=== PATIENT | female | born 1940 | race Caucasian/White ===

== ENCOUNTER 2020-12-25 14:25 | Outpatient (REF) | payer MEDICARE, SELFPAY ==
[2020-12-25 18:18] LABS: Alanine Aminotransferase 21 U/L (0-31); Albumin Level 4.4 g/dL (3.5-5.0); Alkaline Phosphatase 55 U/L (39-117); Anion Gap 16 (12-20); Aspartate Amino Transferase 28 U/L (5-31); Bilirubin Total 1.3 mg/dL (0.0-1.0); Blood Urea Nitrogen 46 mg/dL (9-16); Calcium 9.3 mg/dL (8.4-10.2); Carbon Dioxide 25 mmol/L (22-29); Chloride 102 mmol/L (96-108); Estimated Glomerular Filt Rate 39; Glucose Random 95 mg/dL (60-115); Potassium 3.7 mmol/L (3.3-5.1); Sodium 139 mmol/L (135-145)
[2020-12-26 07:46] LABS: Estimated Average Glucose 131 mg/dL; Hemoglobin A1c % 6.2 %
== END 2020-12-25 14:26 | disposition home or self-care (01) ==
LOC: HO.MANLDS 14:25
PROVIDERS: PCP Internal Medicine; Visit Provider Internal Medicine
DX: R73.01 Impaired fasting glucose (principal)
CPT/HCPCS: 36415; 80053; 83036

== ENCOUNTER 2021-10-10 14:11 | Outpatient (REF) | payer MEDICARE, SELFPAY ==
[2021-10-10 19:40] LABS: Alanine Aminotransferase 16 U/L (0-31); Albumin Level 4.1 g/dL (3.5-5.0); Alkaline Phosphatase 74 U/L (39-117); Anion Gap 13 (12-20); Aspartate Amino Transferase 21 U/L (5-31); Bilirubin Total 0.9 mg/dL (0.0-1.0); Blood Urea Nitrogen 25 mg/dL (9-16); Carbon Dioxide 29 mmol/L (22-29); Chloride 103 mmol/L (96-108); Estimated Glomerular Filt Rate 41; Glucose Random 116 mg/dL (60-115); Potassium 3.7 mmol/L (3.3-5.1); Sodium 141 mmol/L (135-145)
[2021-10-11 07:32] LABS: Estimated Average Glucose 140 mg/dL; Hemoglobin A1c % 6.5 %
== END 2021-10-10 14:12 | disposition home or self-care (01) ==
LOC: HO.MANLDS 14:11
PROVIDERS: PCP Internal Medicine; Visit Provider Internal Medicine
DX: R73.01 Impaired fasting glucose (principal)
CPT/HCPCS: 36415; 80053; 83036

== ENCOUNTER 2022-06-19 13:35 | Outpatient (REF) | payer MEDICARE, SELFPAY ==
[2022-06-19 17:47] LABS: Appearance Urine HAZY; Color Urine YELLOW; Glucose Urine UA NEG (NEG); Leukocyte Esterase Urine 3+ (NEG); Nitrite Urine NEG (NEG); PH 6.5 (5.0-8.0); UACC Culture Trigger YES; Urine Blood TRACE (NEG); Urine Ketones NEG (NEG); Urine Protein NEG (NEG-TRACE)
[2022-06-19 17:58] LABS: Bacteria Urine 2+ /LPF; RBC Urine 0-2 /HPF (0); Squamous Epithelial Cell Urine 2+ /LPF; UACC CULT YES
== END 2022-06-19 13:36 | disposition home or self-care (01) ==
LOC: HO.MANLDS 13:35
PROVIDERS: Visit Provider Physician Assistant
DX: N10 Acute pyelonephritis (principal)
CPT/HCPCS: 81001; 87086; 87088; 87186

== ENCOUNTER 2025-01-16 14:01 | Outpatient (REF) | payer MEDICARE, SELFPAY ==
--- OUTSIDE RECORDS SUMMARY | 2025-01-16 17:35 | XMS_ITS | Continuity of Care Document ---
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 MUST MEET 2 OUT OF 3 ELEMENTS: PROBLEMS, DATA OR RISK ELEMENT 1: PROBLEMS 1 OR MORE CHRONIC ILLNESS W/SEVERE EXACERBATION, PROGRESSION MAY REQUIRE HOSPITAL LEVEL CARE OR 1 ACUTE OR CHRONIC ILLNESS OR INJURY THAT POSES A THREAT TO LIFE OR BODILY FUNCTION ELEMENT 2: DATA: MUST MEET 2 OF 3 CATEGORIES CATEGORY 1 REVIEW OF PRIOR EXTERNAL NOTES REVIEW OF THE RESULTS ORDERING OF EACH TEST ASSESSMENT REQUIRING INDEPENDENT HISTORIAN(S) CATEGORY 2: INDEPENDENT INTERPRETATION OF TESTS BY ANOTHER PROVIDER/SPECIALI ST CATEGORY 3: DISCUSSION OF MGT OR TEST INTERPRETATION W/EXTERNAL PHYSICIAN/SPECIAL IST ELEMENT 3: RISK HIGH RISK OF MORBIDITY FROM ADDITIONAL DIAGNOSTIC TESTING OR TREATMENT PROVIDER MUST THOROUGHLY DOCUMENT EACH ELEMENT THAT IS COVERED The patient presented to their appointment today for multiple concerns requiring moderate to high-level decision making and took over 40-45 minutes for an adequate and appropriate history, exam, assessment and treatment plan. This appointment was done with an established patient. Not available 01/16/2025 13:57:13 Plan of Treatment Reminders Order Date Submit Date Provider Last Modified By Organization Details Last Modified Time Details Appointments FOLLOW UP 2024 01:30P M DR ESPINO Not available Not available Not available FOLLOW UP 2024 09:45A M DR ESPINO Not available Not available Not available Lab LIANG + rf (antinucl ear antibodie s + rheumatoi d factor), quantitat caitlin, serum 2024 025 [facility], [address] [place] [address], [place], [address], 01/16/2025 14:03:41 C-reactiv e protein, quantitat caitlin, serum or plasma 2024 [facility], [address] [place] [address], [place], [address], 01/16/2025 14:03:41 ESR (erythroc yte sedimenta tion rate), blood 2024 [facility], [address] [place] [address], [place], [address], 01/16/2025 14:03:40 ige, total, serum 2024 [facility], [address] [place] [address], [place], [address], 01/16/2025 14:03:41 Referral None recorded. Procedures None recorded. Surgeries None recorded. Imaging None recorded. Medication Orders hydroxyzi ne HCl 25 mg tablet 2024 [id number], [address] [place], [place], [id number], 01/16/2025 13:57:48 cephalexi n 500 mg capsule 2024 [id number], [address], [place], [phone], 01/16/2025 13:57:41 Patient TargetsNo targets recorded. Patient Instructions Encounter Date Encounter Id Patient Instructions Last Modified By Organization Details Last Modified Time 01/16/2025 [id number] leg and ankle edema: care instructions Not available 01/16/2025 13:57:34 high blood pressure: care instructions Not available 01/16/2025 13:57:34 learning about high blood pressure Not available 01/16/2025 13:57:34 Reason for Referral None Reported. Problems Name Problem SNOMED Code Status Onset Date Resolution Date Notes Provider Name and Address Organization Details Recorded Time Chronic atrial fibrilla tion 371748907 Active 2018 Not Available [facility] 2 13:05:37 Thromboc ytopenic disorder 129188624 Active 2018 Not Available [facility] 2 13:05:37 Osteoart hritis of wrist 021532571 Active 2021 DONA UGARTE [address] [place], [address], [facility] 2 14:13:11 Osteoart hritis of wrist 733989935 Active 2021 DONA UGARTE [address] [place], [address], 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 38707569 Active 2021 DONA UGARTE [address] [place], [address], [facility] 2 14:20:09 Acute urinary tract infectio n 484198420 Active 2021 DONA UGARTE [address] [place], [address], [facility] 2 14:07:21 Dyspnea on exertion 76775997 Active 2021 DONA UGARTE [address] [place], [address], [facility] 2 10:21:36 Achilles tendinit is 04395066 Active 2022 DONA UGARTE [address] [place], [address], [facility] 3 11:45:35 Paronych ia of finger 524846975 Active 2022 DONA UGARTE [address] [place], [address], [facility] 3 11:45:57 Localize d, primary osteoart hritis of toe 375403139 Active 2022 Dudley Espino, DO [address] [place], [address], [facility] 3 11:02:19 Foot pain 42119060 Active 2022 DONA UGARTE [address] [place], [address], [facility] 3 11:59:09 Acute bronchit is 31134135 Active 2022 DONA UGARTE [address] [place], [address], [facility] 3 10:12:23 Gout 87240607 Active 2023 DONA UGARTE [address] [place], [address], [facility] 4 15:15:41 Pain of left ankle joint 45935595785 578176 Active 2023 Dudley Espino, DO [address] [place] [address], [address], [facility] 4 15:07:38 Idiopath ic urticari a 82869574 Active 2024 DONA UGARTE [address] [place], [address], [facility] 5 12:23:15 Essentia l hyperten ana luisa 15142387 Active 2024 DONA UGARTE [address] [place], [address], [facility] 5 12:24:50 Edema of lower extremit y 384242229 Active 2024 DONA UGARTE [address] [place], [address], [facility] 5 15:52:41 Hyperten sive disorder 55349873 Active 2017 Not Available [facility] 2 13:05:37 Impaired fasting glycemia 753213875 Active 2017 Not Available [facility] 2 13:05:37 Transien t cerebral ischemia 981670664 Active 2017 2005 Not Available [facility] 2 13:05:37 History of lacunar cerebrov ascular accident 60248817570 101 Active 2017 Not Available [facility] 2 13:05:37 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 Not Available [facility] 2 13:05:37 Achilles tendinit is 16049881 Active 2017 Not Available [facility] 2 13:05:37 Plantar fasciiti s 388058996 Active 2017 Not Available [facility] 2 13:05:37 Asthma 002653715 Active 2017 Not Available [facility] 2 13:05:37 Environm ental allergy 652278677 Active 2017 Not Available [facility] 2 13:05:37 Low back pain 933164790 Active 2017 Not Available [facility] 2 13:05:37 Osteoart hritis of knee 225098492 Active 2017 bilateral Not Available [facility] 2 13:05:37 Recurren t urinary tract infectio n 028092020 Active 2017 Not Available [facility] 2 13:05:37 Synovial cyst 204786989 Active 2017 L3-4 Not Available [facility] 2 13:05:37 Paronych ia 17521089 Active 2017 Not Available [facility] 2 13:05:37 Notes:Some problems listed i n Document: #[id number] could not be added to this patient's chart. Please review this document and add these problems to the patient's chart manually as needed. Problem Notes None recorded. Procedures Surgical History Date Name Laterality Status Provider Name and Address Organization Details Recorded Time 022 Corticosteroid Injection completed Dudley Stephens RupinderbalaDO [address] [place] [address], [address], [facility] 02/03/2022 14:02:19 Imaging Results None recorded. Procedure Notes None recorded. Medical Equipment None Reported. Allergies Allergen ID Allergen Name Allergen Category Reaction Reaction Severity Criticality Documentation Date Start Date Code Code System Note Provider Name and Address Organization Details Recorded Time 1153 Product containin g tetracycl ine and antibioti c (product) medicatio n Not available Not available Not available 03/22/2018 30378 1004 [facility] 8 15:53:21 1154 Substance with sulfonami de structure and antibacte rial mechanism of action (substanc e) medicatio n Not available Not available Not available 03/22/2018 50491 8003 [facility] Jessica Gonz[facility]les [facility] 8 15:53:27 1155 Non-stero idal anti-infl ammatory agent (product) medicatio n Not available Not available Not available 03/22/2018 55172 005 [facility] Jessica Gonzáles [facility] 8 15:53:34 2501 Macrobid medicatio n nausea Not available Not available 09/28/2018 80633 1 RxNorm [facility] 8 10:12:12 8033 allopurin ol medicatio n hives Not available Not available 04/07/2024 519 RxNorm [facility] 4 14:33:44 8373 febuxosta t medicatio n flushing moderate low 08/21/2024 11357 RxNorm Dudley Stephens Mauri, [address] [place] [address], [address], [facility] 4 15:05:23 Medications Name Sig Start Date Stop Date Status Note LastModified by Organization Details LastModified Time amoxicilli n 500 mg capsule TAKE 1 CAPSULE BY MOUTH EVERY 8 HOURS FOR 7 DAYS 02/08 completed Not Available Not Available Not Available prednisone 10 mg tablet 40 mg x 3 days30 mg x 3 days 20 mg x 3 days10 mg x 3 days 01/16 completed Not Available Not Available Not Available albuterol sulfate 2.5 mg/3 mL (0.083 %) solution for nebulizati on USE 3 ML VIA NEBULIZER THREE TIMES DAILY active Not Available Not Available No t Available lisinopril 20 mg-hydroch lorothiazi de 12.5 mg tablet Take 2 tablets every day by oral route for 30 days. 06/14 completed Not Available Not Available Not Available azithromyc in 250 mg tablet 10/09 completed Not Available Not Available Not Available lisinopril 20 mg tablet TAKE ONE TAB ONCE PER DAY 01/30 completed Not Available Not Available Not Available prednisone 20 mg tablet TAKE 3 TABLETS BY MOUTH EVERY DAY FOR 15 DAYS 01/16 completed Not Available Not Available Not Available prednisone 5 mg tablet TAKE 2 TABLETS BY MOUTH EVERY DAY FOR 10 DAYS THEN TAKE 1 TABLET BY MOUTH EVERY DAY FOR 10 DAYS THEN STOP 01/16 completed Not Available Not Available Not Available ciprofloxa alfonso 250 mg tablet TAKE 1 TABLET BY MOUTH EVERY 12 HOURS FOR 5 DAYS 11/04 completed Not Available Not Available Not Available levofloxac in 250 mg tablet 03/23 completed Not Available Not Available Not Available TobraDex 0.3 %-0.1 % eye ointment APPLY A SMALL AMOUNT INTO THE CONJUNCTI DESTINY SAC(S) IN AFFECTED EYE(S) BY OPHTHALMI C ROUTE 2 TIMES PER DAY 01/28 completed Not Available Not Available Not Available amoxicilli n 500 mg tablet TAKE 1 TABLET BY MOUTH EVERY 8 HOURS FOR 7 DAYS 10/09 completed Not Available Not Available Not Available oxycodone- acetaminop hen 5 mg-325 mg tablet TAKE 1 TABLET BY MOUTH TWICE DAILY NEEDED 01/16 completed Not Available Not Available Not Available amoxicilli n 875 mg tablet TAKE 1 TABLET BY MOUTH EVERY 12 HOURS FOR 7 DAYS 05/30 completed Not Available Not Available Not Available trazodone 100 mg tablet 03/23 completed Not Available Not Available Not Available amlodipine 10 mg tablet take 1 tablet by mouth once daily 04/12 completed edema Not Available Not Available Not Available cephalexin 500 mg capsule Take 1 capsule 3 times a day by oral route for 7 days. 2024 active Not Available Not Available Not Avai lable erythromyc in 5 mg/gram (0.5 %) eye ointment 08/19 completed Not Available Not Available Not Available ranitidine 150 mg tablet TAKE 1 TABLET BY MOUTH TWICE A DAY 05/13 completed Not Available Not Available Not Available prednisone 50 mg tablet 10/09 completed Not Available Not Available Not Available lisinopril 20 mg-hydroch lorothiazi de 25 mg tablet TAKE 1 TABLET BY MOUTH DAILY active Not Available Not Available No t Available cephalexin 500 mg tablet TAKE 1 TABLET BY MOUTH EVERY 6 HOURS FOR 7 DAYS 05/18 completed Not Available Not Available Not Available hydroxyzin e HCl 25 mg tablet Take 1 tablet 3 times a day by oral route as needed for 10 days. 2024 active Not Available Not Available Not Avai lable allopurino l 300 mg tablet 04/07 completed HIves Not Available Not Available Not Available furosemide 20 mg tablet TAKE 1 TABLET BY MOUTH EVERY DAY FOR 14 DAYS 01/16 completed Not Available Not Available Not Available albuterol sulfate HFA 90 mcg/actuat ion aerosol inhaler INHALE 2 PUFFS BY MOUTH INTO THE LUNGS EVERY 4 HOURS IF NEEDED active Not Available Not Available No t Available atenolol 50 mg tablet TAKE 1 TABLET BY MOUTH TWICE DAILY active Not Available Not Available No t Available tobramycin 0.3 %-dexameth asone 0.1 % eye drops,susp ension 08/19 completed Not Available Not Available Not Available oxycodone 5 mg tablet 01/16 completed Not Available Not Available Not Available neomycin-p olymyxin-h ydrocort 3.5 mg-10,000 unit/mL-1 % ear drops,susp SHAKE LIQUID AND INSTILL 4 DROPS TO AFFECTED EAR THREE TIMES DAILY 10/10 completed Not Available Not Available Not Available nitrofuran toin monohydrat e/macrocry stals 100 mg capsule Take 1 capsule every 12 hours by oral route. 09/28 completed Not Available Not Available Not Available febuxostat 40 mg tablet active Not Available Not Available Not Available Zyrtec 10 mg capsule Take 1 capsule every day by oral route. active Not Available Not Available No t Available Prevnar 13 (PF) 0.5 mL intramuscu lar syringe 11/13 completed Not Available Not Available Not Available Eliquis 5 mg tablet TAKE 1 TABLET BY MOUTH TWICE DAILY active Not Available Not Available No t Available Fluzone High-Dose 5101-8287 (PF) 180 mcg/0.5 mL intramuscu lar syringe 11/29 completed Not Available Not Available Not Available Fluzone High-Dose (PF) 180 mcg/0.5 mL intramuscu lar syringe 01/28 completed Not Available Not Available Not Available Fluzone High-Dose Quad (PF) 240 mcg/0.7 mL IM syringe 11/13 completed Not Available Not Available Not Available Vitals Date Recorded Body height Body mass index (BMI) Body weight Heart rate Oxygen saturation Oxygen saturation in Arterial blood by Pulse oximetry Systolic blood pressure Diastolic blood pressure Provider Name and Address Organization Details Last Updated DateTime 5 160.02 cm 35.4 kg/m2 63578.4 7 g 72 /min 98 % 98 % 188 mm[Hg] 98 mm[Hg] David Poole [place] Jorje [facility] 5 13:32:53 Social History Question Answer Notes LastModified by Organizat ion Details LastModified Time Tobacco Smoking Status Former Smoker Not Available [facility] 09/24/2020 03:36:24 What Was The Date Of Your Most Recent Tobacco Screening? 01/16/2025 [email or web address] Information not available 01/16/2025 Do You Or Have You Ever Used Any Other Forms Of Tobacco Or Nicotine? No Information not available 05/18/2023 Sex: Unknown Functional Status None recorded. Mental Status None recorded. Family History Nothing Reported. Medical History No medical history recorded. Gynecological HistoryNo gynecological history recorded. Obstetrics History GPAL:G 0 P 0 0 0 0 Immunizations Vaccine Type Date Status Note Provider Nam e and Address Organization Details Recorded Time COVID-19, mRNA, LNP-S, PF, 100 mcg/0.5mL dose or 50 mcg/0.25mL dose 1 completed BRADLEY Morris [facility] 05/28/2021 08:41:27 COVID-19, mRNA, LNP-S, PF, 100 mcg/0.5mL dose or 50 mcg/0.25mL dose 1 completed Key de [facility] 05/28/2021 08:41:32 COVID-19, mRNA, LNP-S, PF, 30 mcg/0.3 mL dose 1 completed DONA UGARTE [address] [place] [address], [address], [facility] 10/05/2021 18:44:20 Influenza, split virus, quadrivalent, preservative 1 completed Jessica de [facility] 10/10/2021 13:33:43 COVID-19, mRNA, LNP-S, PF, 30 mcg/0.3 mL dose 2 completed Jessica de [facility] 03/11/2022 13:34:30 zoster recombinant 2 completed Tammi de [facility] 11/03/2022 10:11:25 zoster recombinant 2 completed Tammi de [facility] 11/03/2022 10:11:32 influenza, unspecified formulation 2 completed Tammi de [facility] 11/03/2022 10:12:09 Influenza, split virus, quadrivalent, preservative 9 completed Jessica de [facility] 01/29/2020 10:48:42 Influenza, split virus, quadrivalent, preservative 0 completed Key de [facility] 09/03/2020 08:17:54 Pneumococcal conjugate PCV 13 0 completed Key de [facility] 09/03/2020 08:18:12 Past Encounters Encounter ID Performer Location Encounter Start Date Encounter Closed Date Diagnosis/Indication Diagnosis SNOMED-CT Code Diagnosis ICD10 Code Diagnosis Note [id number] Dudley Espino DO [facility] [address],[place] [address] 12/18/2024 09:46:34 12/18/2024 10:15:46 Asthma 031451159 J45.31 again she is doing well the wheezing is well controlled no recent episodes john dickerson has a wood stove which is not great for her breathing but she does anywayhad RSV this summershe is having to use the rescue inhaler twice a day Hypertensive disorder 38 688950 I10 stable overall doing well with med now atenolol and hctz lisinopril combo despite recent gout attackwill take 1/2 tab atenolol for now is using her new bp machineno obvious changes noted on exam relates she knows when her bp is elevated she doesnt feel good and this is very noticeable for herbp is much better states is bc her stress levels are better Chronic at rial fibrillation 116448237 I48.21 she is doing very well overall sees cardiologi st in 2 weeksstill active and this is controlled no palpitat and no cp or sobhold off on event recorder untils seen no cp no sob doing quite well and is anticoag on eliquis an d has good rate control Thrombocyt openic disorder 005805231 D69.3 will be seeing the hematologi st for this? 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 Impaired f asting glycemia 923220616 R73.01 we need to have this checked again last spring she was a1c is 6.2 and prior was 6.5 and is close to full blown DM but she has lost a great deal of wgt and so this should not be a issue [id number] DONA UGARTE [facility] [address] [facility] [address],[place] [address] 01/09/2025 09:23:55 01/09/2025 12:43:37 Idiopathic urticaria 92792005 L50.1 will monitorres tart lisinopril Essential hypertension 36153825 I10 restart lisinopril [id number] Dudley Espino DO [facility] [address] [address] 01/16/2025 13:25:09 01/16/2025 14:28:03 Paronychia of finger 700953069 L03.019 noted getting worse and now swollen with early blister Essential hypertension 00668467 I10 will go back to the lisinopril hct stop the furosemide Edema of horacio ower extremity 375194035 R60.0 seems stable while on furosemid but we will switch back to hct w lisinopril Idiopathic urticaria 422 21343 L50.1 unknown etiology Health Concerns Section Related Observation LastModified by Organization Detai ls LastModified Time None Recorded Concern Status LastModified by Organization Details LastModified Time None Recorded Payers Encounter Date Sequence Insurance Name Policy Number Policy Padron Covered Member ID Padron Member ID Guarantor Name 01/16/2025 1 [facility] U[facility] [id number] 01 [place] Umanzor Notes Date Note Type Note Provider Name and Address Organization Details Recorded Time 5 text/htm l Care Management - HypertensionReported bypatient.Self Care:not under emotional stress Severity:symptoms are improving; does not interfere with daily activities Associated Symptoms:no dizziness; no lightheadedness; no chest pain; no shortness of breath; no palpitations; no edema; no calf muscle cramps; no blurred vision; no confusion; no headaches; no fatigue here for rechk and relates that the hives have been present for weeksrelates it predates the furosemideno change in her soaps or detergents no pet exposurerelates has hives all over her trunk arms legs but worse on trunkstates it is actually better but she is still a messnot in the facestopping lisinopril did not help taking 40 pred did not helprelates lacie has an infection in bed of nail of middle finger on left hand Dudley Espino, DO [address] [facility], [place], [address], [facility] 01/16/2025 13:59:02 OBGyn Episode No OBEpisode recorded.
--- OUTSIDE RECORDS SUMMARY | 2025-01-16 17:35 | XMS_ITS | Continuity of Care Document ---
Author Organization [place] - [facility], [facility] Address [address] [place] [address] [place] [address] Assessment Encounter Date Assessment Date Assessment LastModified by Organization Details LastModified Time 12/18/2024 12/18/2024 [id number] [place] [id number] ([employer]) MDM MODERATE MUST MEET 2 OUT OF 3 ELEMENTS: PROBLEMS, DATA OR RISK ELEMENT 1: PROBLEMS ADDRESSED 1 OR MORE CHRONIC ILLNESS WITH EXACERBATION OR 2 OR MORE STABLE CHRONIC ILLNESSES OR 1 UNDIAGNOSED NEW PROBLEM OR 1 ACUTE ILLNESS W/SYMPTOMS OR 1 ACUTE COMPLICATED INJURY ELEMENT 2: DATA MUST MEET 1 OF 3 CATEGORIES CATEGORY 1: REVIEW OF PRIOR EXTERNAL NOTES, REVIEW OF RESULTS, ORDERING OF EACH TEST, ASSESSMENT REQUIRING INDEPENDENT HISTORIAN OR CATEGORY 2: INDEPENDENT INTERPRETATION OF TESTS BY ANOTHER PHYSICIAN OR SPECIALIST OR CATEGORY 3: DISCUSSION OF MGT OR TEST INTERPRETATION W/EXTERNAL PHYSICIAN OR SPECIALIST ELEMENT 3: RISK RISK OF COMPLICATIONS AND/OR MORBIDITY OR MORTALITY OF PATIENT MANAGEMENT PROVIDER MUST THOROUGHLY DOCUMENT EACH ELEMENT THAT IS COVERED Not available 12/18/2024 10:06:11 Plan of Treatment Reminders Order Date Submit Date Provider Last Modified By Organization Details Last Modified Time Details Appointments FOLLOW UP 15 2024 01:30P M DR ESPINO Not available Not available Not available FOLLOW UP 15 2024 09:45A M DR ESPINO Not available Not available Not available Lab HbA1c (hemoglo bin A1c), blood 2024 025 [facility] [address], [address], 12/18/2024 16:57:39 CMP, serum or plasma 2024 025 [place], [address], 12/18/2024 18:16:46 CBC w/ diff 2024 025 R[facility], [place], [address], 12/18/2024 13:33:17 magnesiu m, serum or plasma 2024 025 [facility], [place], [address], 12/18/2024 10:17:35 Referral None recorded . Procedures None recorded . Surgeries None recorded . Imaging None recorded . Medication Orders None recorded . Patient TargetsNo targets recorded. Patient Instructions Encounter Date Encounter Id Patient Instructions Last Modified By Organization Details Last Modified Time 12/18/2024 [id number] prediabetes: car e instructions Not available 12/18/2024 10:10:59 pulse oximetry* Not available 12/18/2024 10:10:59 thrombocytopenia : care instructions Not available 12/18/2024 10:10:59 Reason for Referral None Reported. Results Created Date Observation Date Name Description Value Unit Range Abnormal Flag Note LastModifiedBy Organization Detail LastModifiedTime 12/18/1912/18/2024 pulse oxime try* Result 98 Not Available [facility] [address] [place] [address] D, [place], [address], 12/15/2024 08:16:10 Result Notes None recorded. Problems Name Problem SNOMED Code Status Onset Date Resolution Date Notes Provider Name and Address Organization Details Recorded Time Chronic atrial fibrilla tion 893640682 Active 2018 Not Available [facility] 2 13:05:37 Thromboc ytopenic disorder 854994989 Active 2018 Not Available [facility] 2 13:05:37 Osteoart hritis of wrist 738136614 Active 2021 DONA UGARTE [address] [place], [address], [facility] 2 14:13:11 Osteoart hritis of wrist 667256720 Active 2021 DONA UGARTE [address] [place], [address], [facility] 2 14:13:44 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 51426962 Active 2021 DONA UGARTE [address] [place], [address], [facility] 2 14:19:46 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 12772298 Active 2021 DONA UGARTE [address] [place], [address], [facility] 2 14:20:09 Acute urinary tract infectio n 429447305 Active 2021 DONA UGARTE [address] [place], [address], [facility] 2 14:07:21 Dyspnea on exertion 41064164 Active 2021 DONA UGARTE [address] [place], [address], [facility] 2 10:21:36 Achilles tendinit is 06809188 Active 2022 DONA UGARTE [address] [place], [address], [facility] 3 11:45:35 Paronych ia of finger 820628544 Active 2022 DONA UGARTE [address] [place], [address], [facility] 3 11:45:57 Localize d, primary osteoart hritis of toe 395722718 Active 2022 Dudley Espino DO [address] [place], [address], [facility] 3 11:02:19 Foot pain 71257265 Active 2022 DONA UGARTE [address] [place], [address], [facility] 3 11:59:09 Acute bronchit is 21063075 Active 2022 DONA UGARTE [address] [place], [address], [facility] 3 10:12:23 Gout 42727509 Active 2023 DONA UGARTE [address] [place], [address], [facility] 4 15:15:41 Pain of left ankle joint 60741327444 793371 Active 2023 Dudley Espino DO [address] [place], [address], [facility] 4 15:07:38 Idiopath ic urticari a 60586241 Active 2024 DONA UGARTE [address] [place], [address], [facility] 5 12:23:15 Essentia l hyperten ana luisa 98309677 Active 2024 DONA UGARTE [address] [place], [address], [facility] 5 12:24:50 Edema of lower extremit y 643205517 Active 2024 DONA UGARTE [address] [place], [address], [facility] 5 15:52:41 Hyperten sive disorder 68943333 Active 2017 Not Available [facility] 2 13:05:37 Impaired fasting glycemia 231397576 Active 2017 Not Available [facility] 2 13:05:37 Transien t cerebral ischemia 158046527 Active 2017 2005 Not Available [facility] 2 13:05:37 History of lacunar cerebrov ascular accident 57047017073 101 Active 2017 Not Available [facility] 2 13:05:37 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 Not Available [facility] 2 13:05:37 Achilles tendinit is 47971325 Active 2017 Not Available [facility] 2 13:05:37 Plantar fasciiti s 402387594 Active 2017 Not Available [facility] 2 13:05:37 Asthma 758188803 Active 2017 Not Available [facility] 2 13:05:37 Environm ental allergy 546914719 Active 2017 Not Available [facility] 2 13:05:37 Low back pain 124620301 Active 2017 Not Available [facility] 2 13:05:37 Osteoart hritis of knee 855253539 Active 2017 bilateral Not Available [facility] 2 13:05:37 Recurren t urinary tract infectio n 006100889 Active 2017 Not Available [facility] 2 13:05:37 Synovial cyst 744785199 Active 2017 L3-4 Not Available [facility] 2 13:05:37 Paronych ia 26239465 Active 2017 Not Available [facility] 2 13:05:37 Notes:Some problems listed i n Document: #[id number] could not be added to this patient's chart. Please review this document and add these problems to the patient's chart manually as needed. Problem Notes None recorded. Procedures Surgical History Date Name Laterality Status Provider Name and Address Organization Details Recorded Time 022 Corticosteroid Injection completed Dudley Espino, DO [address] [facility], [place], [address], [facility] 02/03/2022 14:02:19 Imaging Results None recorded. Procedure Notes None recorded. Medical Equipment None Reported. Allergies Allergen ID Allergen Name Allergen Category Reaction Reaction Severity Criticality Documentation Date Start Date Code Code System Note Provider Name and Address Organization Details Recorded Time 1153 Product containin g tetracycl ine and antibioti c (product) medicatio n Not available Not available Not available 03/22/2018 24452 1004 SNOMED [facility] 8 15:53:21 1154 Substance with sulfonami de structure and antibacte rial mechanism of action (substanc e) medicatio n Not available Not available Not available 03/22/2018 96806 8003 SN[facility]ED [facility] 8 15:53:27 1155 Non-stero idal anti-infl ammatory agent (product) medicatio n Not available Not available Not available 03/22/2018 95479 [address] [facility] 8 15:53:34 2501 Macrobid medicatio n nausea Not available Not available 09/28/2018 70140 1 RxNorm [facility] 8 10:12:12 8033 allopurin ol medicatio n hives Not available Not available 04/07/2024 519 RxNorm [facility] 4 14:33:44 8373 febuxosta t medicatio n flushing moderate low 08/21/2024 05397 RxNorm Dudley Espino, DO [address] [place], [address] 4 15:05:23 Medications Name Sig Start [...] Available Not Available prednisone 50 mg tablet 11/18 /2022 completed Not Available Not Available Not Available [...] Not Available No t Available Fluzone High-Dose 3150-7077 (PF) 180 mcg/0.5 mL intramuscu lar syringe [...] Updated DateTime 5 160.02 cm 35.4 kg/m2 70201.4 7 g 60 /min 98 % 98 % 130 mm[Hg] 80 mm[Hg] Marielena Baig [facility] 5 09:53:58 Social History Question Answer Notes LastModified by Organizat ion Details LastModified Time Tobacco Smoking Status Former Smoker Not Available [facility] 09/24/2020 03:36:24 What Was The Date Of [...] 50 mcg/0.25mL dose 1 completed Key de [facility] 05/28/2021 08:41:27 COVID-19, mRNA, LNP-S, PF, 100 mcg/0.5mL dose or 50 mcg/0.25mL dose 1 completed Key de [facility] 05/28/2021 08:41:32 COVID-19, mRNA, LNP-S, PF, 30 mcg/0.3 mL dose 1 completed DONA UGARTE [address] [place] [address], [address], [place] [facility] 10/05/2021 18:44:20 Influenza, split virus, quadrivalent, preservative 1 completed [facility] 10/10/2021 13:33:43 COVID-19, mRNA, LNP-S, PF, 30 mcg/0.3 mL dose 2 completed [facility] 03/11/2022 13:34:30 zoster recombinant 2 completed Tammi [facility] 11/03/2022 10:11:25 zoster recombinant 2 completed [facility] 11/03/2022 10:11:32 influenza, unspecified formulation 2 completed T[facility]i [facility] 11/03/2022 10:12:09 Influenza, split virus, quadrivalent, preservative 9 completed Jessica [facility] 01/29/2020 10:48:42 Influenza, split virus, quadrivalent, preservative 0 completed Key [facility] 09/03/2020 08:17:54 Pneumococcal conjugate PCV 13 0 completed Key [facility] 09/03/2020 08:18:12 Past Encounters Encounter ID Performer Location Encounter Start Date Encounter Closed Date Diagnosis/Indication Diagnosis SNOMED-CT Code Diagnosis ICD10 Code Diagnosis Note [id number] Dudley Espino [facility] [address] [facility],[place] [address] 12/18/2024 09:46:34 12/18/2024 10:15:46 Asthma 217199474 J45.31 again she is doing well the wheezing is well controlled no recent episodes an d has a wood stove which is not great for her breathing but she does anywayhad RSV this summershe is having to use the rescue inhaler twice a day Hypertensive disorder 38 826141 I10 stable overall doing well with med [...] levels are better Chronic at rial fibrillation 620208879 I48.21 she is doing very well overall sees cardiologi st in 2 weeksstill active and this is controlled no palpitat and no cp or sobhold off on event recorder untils seen no cp no sob doing quite well and is anticoag on eliquis an d has good rate control Thrombocyt openic disorder 791141551 D69.3 will be seeing the hematologi st for this? 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 Impaired f asting glycemia 676596464 R73.01 we need to have this checked again last spring she was a1c is 6.2 and prior was 6.5 and is close to full blown DM but she has lost a great deal of wgt and so this should not be a issue Health Concerns Section Related Observation LastModified by Organization Detai ls LastModified Time None Recorded Concern Status LastModified by Organization Details LastModified Time None Recorded Payers Encounter Date Sequence Insurance Name Policy Number Policy Padron Covered Member ID Padron Member ID Guarantor Name 12/18/2024 1 [facility] Virginia Umanzor [id number] Virginia Umanzor Notes Date Note Type Note Provider Name and Address Organization Details Recorded Time 5 text/htm l Care Management - Atrial FibrillationReported bypatient.Medications:co mpliant with medication Prior Imaging:echocardiogram; recent ECG Associated Symptoms:no dizziness; no chest pain; no easy bruisability; no rapid heart rateCare Management - HypertensionReported bypatient.Self Care:not under emotional stress Severity:symptoms are improving; does not interfere with daily activities Associated Symptoms:no dizziness; no lightheadedness; no chest pain; no shortness of breath; no palpitations; no edema; no calf muscle cramps; no blurred vision; no confusion; no headaches; no fatigue here for rechk and is doing okno major issues seeing research chemist tomorrowno aurea trammell not gotten lab Dudley Espino, DO [address] [facility], [place], [address], [facility] 12/18/2024 10:15:28 OBGyn Episode No OBEpisode recorded.
--- OUTSIDE RECORDS SUMMARY | 2025-01-16 17:35 | XMS_ITS | Data Portability ---
Author Organization [facility] Home Service Address [address] [place] [address] Assessment Encounter Date Assessment Date Assessment LastModified by Organization Details LastModified Time 04/07/2024 04/07/2024 [address] [place] [address] (SECURITIES CONSULTANT) [facility] MODERATE MUST MEET 2 OUT OF 3 [...] EACH ELEMENT THAT IS COVERED Not available 04/07/2024 14:41:43 08/21/2024 08/21/2024 [address] [place] [address] (SECURITIES CONSULTANT) MDM MODERATE MUST MEET 2 OUT OF [...] EACH ELEMENT THAT IS COVERED Not available 08/21/2024 15:07:28 12/18/2024 12/18/2024 [address] [place] [address] (SECURITIES CONSULTANT) MDM MODERATE MUST MEET 2 OUT OF [...] THAT IS COVERED Not available 12/18/2024 10:06:11 01/09/2025 01/09/2025 Patient agreed and verbally consents to this audio and video Telehealth appt via a secure platform [email or web address] Not available 01/09/2025 12:23:23 01/16/2025 01/16/2025 [id number] [place] [id number] (SECURITIES CONSULTANT) MDM HIGH MUST MEET 2 OUT OF [...] Time Details Appointments FOLLOW UP 2024 01:30P Jaspreet ESPINO Not available Not available Not available FOLLOW UP 2024 09:45A M DR ESPINO Not available Not available Not available Lab LIANG + rf (antinucl ear antibodie s + rheumatoi d factor), quantitat caitlin, serum 2024 025 [facility], [address] [place] [address], [address], 01/16/2025 14:03:41 C-reactiv e protein, quantitat caitlin, serum or plasma 2024 025 [facility], [address] [place] [address], [address], 01/16/2025 14:03:41 ESR (erythroc yte sedimenta tion rate), blood 2024 025 [facility], [address] [place] [address], [address], 01/16/2025 14:03:40 ige, total, serum 2024 025 [facility], [address] [place] [address], [place], [address], 01/16/2025 14:03:41 HbA1c (hemoglob in A1c), blood 2024 025 [facility] [address], [place], [address], 12/18/2024 16:57:39 CMP, serum or plasma 2024 025 [facility], [place], [address], 12/18/2024 18:16:46 CBC w/ diff 2024 025 [facility], [place], [address], 12/18/2024 13:33:17 magnesium , serum or plasma 2024 025 [facility], [place], [address], 12/18/2024 10:17:35 Referral None recorded. Procedures None recorded. Surgeries None recorded. Imaging None recorded. Medication Orders hydroxyzi ne HCl 25 mg tablet 2024 [id number], [address] [place], [place], [id number], 01/16/2025 13:57:48 cephalexi n 500 mg capsule 2024 [facility] #[id number], [address] [place] [address], [place], [id number], 01/16/2025 13:57:41 prednison e 10 mg tablet 2023 [facility] #65552, [address] [place] [address], [place], [id number], 01/16/2025 13:31:20 oxycodone -acetamin ophen 5 mg-325 mg tablet 2023 [facility] #30328, [address] [place] [address], [place], [id number], 01/16/2025 13:31:30 Patient TargetsNo targets recorded. Patient Instructions Encounter Date Encounter Id Patient Instructions Last Modified By Organization Details Last Modified Time 04/07/2024 [id number] gout: care instructions Not available 04/07/2024 14:45:05 pulse oximetry* RICHIE Not available 04/07/2024 14:51:32 08/21/2024 [id number] pulse oximetry* Not available 08/21/2024 15:10:50 12/18/2024 [id number] prediabetes: car e instructions Not available 12/18/2024 10:10:59 pulse oximetry* Not available 12/18/2024 10:10:59 thrombocytopenia : care instructions Not available 12/18/2024 10:10:59 01/16/2025 [id number] leg and ankle edema: care instructions Not available 01/16/2025 13:57:34 high blood pressure: care instructions Not available 01/16/2025 13:57:34 learning about high blood pressure Not available 01/16/2025 13:57:34 Reason for Referral None Reported. Results Created Date Observation Date Name Description Value Unit Range Abnormal Flag Note LastModifiedBy Organization Detail LastModifiedTime 08/21/20 24 08/21/2024 pulse oxime try* Result 98 Not Available [facility] [address] [place] [address], [place], [address], 08/21/2024 10:32:10 12/18/19 25 12/18/2024 pulse oxime try* Result 98 Not Available [facility] [address] [place] [address], [place], [address], 12/15/2024 08:16:10 Result Notes None recorded. 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 DONA UGARTE [address] [place] [address], [address], [facility] 2 14:13:11 Osteoart hritis of wrist 757100742 Active 2021 DONA UGARTE [address] [place], [address], [facility] 2 14:13:44 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 29462176 Active 2021 DONA UGARTE [address] [place], [address], [facility] 2 14:19:46 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 62600533 Active 2021 DONA UGARTE [address] [place], [address], [facility] 2 14:20:09 Acute urinary tract infectio n 947305509 Active 2021 DONA UGARTE [address] [place], [address], [facility] 2 14:07:21 Dyspnea on exertion 52352128 Active 2021 DONA UGARTE [address] [place], [address], [facility] 2 10:21:36 Achilles tendinit is 22405586 Active 2022 DONA UGARTE [address] [place], [address], [facility] 3 11:45:35 Paronych ia of finger 138985552 Active 2022 DONA UGARTE [address] [place], [address], [facility] 3 11:45:57 Localize d, primary osteoart hritis of toe 913493251 Active 2022 Dudley Espino DO [address] [place], [address], [facility] 3 11:02:19 Foot pain 59291920 Active 2022 DONA UGARTE [address] [place], [address], [facility] 3 11:59:09 Acute bronchit is 75536777 Active 2022 DONA UGARTE [address] [place], [address], [facility] 3 10:12:23 Gout 99830879 Active 2023 DONA UGARTE [address] [place], [address], [facility] 4 15:15:41 Pain of left ankle joint 66538847046 654744 Active 2023 Dudley Espino, [address] [place], [address], [facility] 4 15:07:38 Idiopath ic urticari a 48029149 Active 2024 DONA UGARTE [address] [place], [address], [facility] 5 12:23:15 Essentia l hyperten ana luisa 46112089 Active 2024 DONA UGARTE [address] [place], [address], [facility] 5 12:24:50 Edema of lower extremit y 976680601 Active 2024 DONA UGARTE [address] [place], [address], [facility] 5 15:52:41 Hyperten sive disorder 37860170 Active 2017 Not Available [facility] 2 13:05:37 Impaired fasting glycemia 665735243 Active 2017 Not Available [facility] 2 13:05:37 Transien t cerebral ischemia 645810704 Active 2017 2005 Not Available [facility] 2 13:05:37 History of lacunar cerebrov ascular accident 49896147731 101 Active 2017 Not Available [facility] 2 13:05:37 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 Not Available [facility] 2 13:05:37 Achilles tendinit is 17039296 Active 2017 Not Available [facility] 2 13:05:37 Plantar fasciiti s 121619042 Active 2017 Not Available [facility] 2 13:05:37 Asthma 142463909 Active 2017 Not Available [facility] 2 13:05:37 Environm ental allergy 281923826 Active 2017 Not Available [facility] 2 13:05:37 Low back pain 067640718 Active 2017 Not Available [facility] 2 13:05:37 Osteoart hritis of knee 890634148 Active 2017 bilateral Not Available [facility] 2 13:05:37 Recurren t urinary tract infectio n 949791046 Active 2017 Not Available [facility] 2 13:05:37 Synovial cyst 299209331 Active 2017 L3-4 Not Available [facility] 2 13:05:37 Paronych ia 55660199 Active 2017 Not Available [facility] 2 13:05:37 Notes:Some problems listed i n Document: #[id number] could not be added to this patient's chart. Please review this document and add these problems to the patient's chart manually as needed. Problem Notes None recorded. Procedures Surgical History Date Name Laterality Status Provider Name and Address Organization Details Recorded Time 022 Corticosteroid Injection completed Dudley Espino, DO [address] [place] [address], [place], [address], [facility] 02/03/2022 14:02:19 Imaging Results None recorded. Procedure Notes None recorded. Medical Equipment None Reported. Allergies Allergen ID Allergen Name Allergen Category Reaction Reaction Severity Criticality Documentation Date Start Date Code Code System Note Provider Name and Address Organization Details Recorded Time 1153 Product containin g tetracycl ine and antibioti c (product) medicatio n Not available Not available Not available 03/22/2018 07878 1004 SNHUI de [facility] 8 15:53:21 1154 Substance with sulfonami de structure and antibacte rial mechanism of action (substanc e) medicatio n Not available Not available Not available 03/22/2018 36575 8003 SNOMED Jessica de [facility] 8 15:53:27 1155 Non-stero idal anti-infl ammatory agent (product) medicatio n Not available Not available Not available 03/22/2018 64598 005 SNOMED Jessica de [facility] 8 15:53:34 2501 Macrobid medicatio n nausea Not available Not available 09/28/2018 99710 1 RxNorm Jessica de [facility] 8 10:12:12 8033 allopurin ol medicatio n hives Not available Not available 04/07/2024 519 RxNorm David de [facility] 4 14:33:44 8373 febuxosta t medicatio n flushing moderate low 08/21/2024 04396 RxNorm Dudley Espino, DO [address] [place], [address] [facility] 4 15:05:23 Medications Name Sig Start Date [...] Not Available No t Available Fluzone High-Dose 0022-9987 (PF) 180 mcg/0.5 mL intramuscu lar syringe 11/29 completed Not Available Not Available Not Available Fluzone High-Dose (PF) 180 mcg/0.5 mL intramuscu lar syringe 01/28 completed Not Available Not Available Not Available Fluzone High-Dose Quad 2019- (PF) 240 mcg/0.7 mL IM syringe 11/13 completed Not Available Not Available Not Available Vitals Date Recorded Body height Body mass index (BMI) Body weight Heart rate Respiratory rate Oxygen saturation Oxygen saturation in Arterial blood by Pulse oximetry Systolic blood pressure Diastolic blood pressure Provider Name and Address Organization Details Last Updated DateTime 4 160.02 cm 35.4 kg/m2 79012.4 7 g 74 /min 16 /min 98 % 98 % 130 mm[Hg] 76 mm[Hg] David Poole [facility] 4 14:33:17 Date Recorded Body height Body mass index (BMI) Body weight Heart rate Oxygen saturation Oxygen saturation in Arterial blood by Pulse oximetry Systolic blood pressure Diastolic blood pressure Provider Name and Address Organization Details Last Updated DateTime 4 160.02 cm 35.1 kg/m2 99498.2 9 g 58 /min 98 % 98 % 138 mm[Hg] 78 mm[Hg] Marielena Jovanni [facility] 4 14:43:03 Date Recorded Body height Body mass index (BMI) Body weight Heart rate Oxygen saturation Oxygen saturation in Arterial blood by Pulse oximetry Systolic blood pressure Diastolic blood pressure Provider Name and Address Organization Details Last Updated DateTime 5 160.02 cm 35.4 kg/m2 99635.4 7 g 60 /min 98 % 98 % 130 mm[Hg] 80 mm[Hg] Marielena Baig [facility] 5 09:53:58 Date Recorded Body height Body mass index (BMI) Body weight Heart rate Oxygen saturation Oxygen saturation in Arterial blood by Pulse oximetry Systolic blood pressure Diastolic blood pressure Provider Name and Address Organization Details Last Updated DateTime 5 160.02 cm 35.4 kg/m2 19090.4 7 g 72 /min 98 % 98 % 188 mm[Hg] 98 mm[Hg] David Poole [facility] 5 13:32:53 Social History Question Answer Notes LastModified by Organizat ion Details LastModified Time Tobacco Smoking Status Former Smoker Not Available [facility] 09/24/2020 03:36:24 What Was The Date Of [...] 50 mcg/0.25mL dose 1 completed Key de [facility] 05/28/2021 08:41:27 COVID-19, mRNA, LNP-S, PF, 100 mcg/0.5mL dose or 50 mcg/0.25mL dose 1 completed Key de [facility] 05/28/2021 08:41:32 COVID-19, mRNA, LNP-S, PF, 30 mcg/0.3 mL dose 1 completed DONA UGARTE [address] [place] [address], [address], [facility] 10/05/2021 18:44:20 Influenza, split virus, quadrivalent, preservative 1 completed [facility] 10/10/2021 13:33:43 COVID-19, mRNA, LNP-S, PF, 30 mcg/0.3 mL dose 2 completed [facility] 03/11/2022 13:34:30 zoster recombinant 2 completed [facility] 11/03/2022 10:11:25 zoster recombinant 2 completed [facility] 11/03/2022 10:11:32 influenza, unspecified formulation 2 completed [facility] 11/03/2022 10:12:09 Influenza, split virus, quadrivalent, preservative 9 completed Jessica de [facility] 01/29/2020 10:48:42 Influenza, split virus, quadrivalent, preservative 0 completed Key de [facility] 09/03/2020 08:17:54 Pneumococcal conjugate PCV 13 0 completed Key [facility] 09/03/2020 08:18:12 Past Encounters Encounter ID Performer Location Encounter Start Date Encounter Closed Date Diagnosis/Indication Diagnosis SNOMED-CT Code Diagnosis ICD10 Code Diagnosis Note [id number] Dudley Stephens Mauri [facility] [address] [facility], [place] [address] 03/23/2018 12:12:06 03/23/2018 13:56:39 Hypertensive disorder 25716665 I10 stable overall doing well with meds Impaired f asting glycemia 184447760 R73.01 Paronychia 87080202 L03. 031 [id number] Dudley PendletonYordan Espino [facility] [address] [facility] [address] 06/24/2018 09:53:00 06/24/2018 13:53:04 Hypertensive disorder 24537430 I10 stable overall doing well with meds no neeed for chng will need to follow rhythm asd she has a few pvc's noted on exam Impaired f asting glycemia 381557999 R73.01 warnings re develop of dm discussed need for better diet as snacking at night is her problem doesnt eat during day which is not good [id number] Dudley Stephens Mauri [facility] [address] [facility],[place] [address] 08/19/2018 09:18:52 08/19/2018 11:33:45 Hypertensive disorder 87336709 I10 stable overall doing well with meds but has recorded high values of her bp's states has old bp cuff will have her get a new bp machine and have her to record these will need to follow rhythm as she has a few pvc's noted on exam Impaired f asting glycemia 987290038 R73.01 warnings re develop of dm discussed need for better diet as snacking at night is her problem doesnt eat during day which is not good Adult heal th examination 865539232 Z00.00 discussed health care Screening for cardiovascular system disease 937279817 Z13.6 Screening for malignant neoplasm of colon 667058270 Z12.11 is already up to date Screening for osteoporosis 121136897 Z13.820 has already had Screening mammography 149367 Z12.31 already scheduled [id number] Shayna Engle NP, S [facility] [address] [facility], [place] [facility] [address] 09/19/2018 09:43:53 09/21/2018 08:53:59 Acute cystitis 46023109 N30.00 Atrial fibrillation 4943 6004 I48.91 asymptomat ic with ventricula r rate 60's. consider eliquis [id number] Dudley Espino, [facility] [address] [facility], [place] [facility] [place] [address] 09/28/2018 10:01:56 09/28/2018 11:42:04 Hypertensive disorder 87565941 I10 stable overall doing well with meds but has recorded high values of her bp's states has old bp cuff will have her get a new bp machine and have her to record these will need to follow rhythm as she has a few pvc's noted on exam Impaired f asting glycemia 025141527 R73.01 warnings re develop of dm discussed need for better diet as snacking at night is her problem doesnt eat during day which is not good a1c is 6.1 Adult heal th examination 820039410 Z00.00 discussed health care Screening for cardiovascular system disease 418242957 Z13.6 Screening for malignant neoplasm of colon 244311139 Z12.11 is already up to date Screening for osteoporosis 468202701 Z13.820 has already had Screening mammography 24 505380 Z12.31 already scheduled Recurrent urinary tract infection 024153400 N39.0 currently is symptom free Urinary tr act infectious disease 72224400 N39.0 now resolved will rechk when need [id number] Shayna Engle NP, S [facility] [address] [facility], [place] [place] [facility] [address] 11/29/2018 10:51:05 11/29/2018 16:49:56 Increased frequency of urination 543767896 R35.0 Hypertensive disorder 38 999556 I10 Chronic at rial fibrillation 391430989 I48.2 up to date with cardiology [id number] Shayna Engle NP, S [facility] [address] [facility] [place] [address] 02/03/2019 09:42:11 02/03/2019 10:08:28 Petechiae of skin 722663430 R23.3 Impaired f asting glycemia 527211645 R73.01 Hypertensive disorder 38 405363 I10 stable [id number] Dudley Espino DO [facility] [address] [facility],[place] [address] 02/22/2019 11:38:06 02/22/2019 12:14:58 Atrial fibrillation 29436081 I48.91 overall is stable and doing ok denies cp or sob but asthma is starting to act up again so will be using inhaler more which will increase the heart rate Thrombocyt openic disorder 431889573 D69.6 will be seeing the hematologi st for this? poss link with elikylee Chronic at rial fibrillation 155597413 I48.2 stable on atenolol Hypertensive disorder 38 094610 I10 stable overall doing well with meds but has recorded high values of her bp's states has old bp cuff will have her get a new bp machine and have her to record these will need to follow rhythm as she has a few pvc's noted on exam Impaired f asting glycemia 040458011 R73.01 warnings re develop of dm discussed need for better diet as snacking at night is her problem doesnt eat during day which is not good a1c is 6. February [employer] [facility] [address] [facility],[place] [address] 04/12/2019 11:30:10 04/12/2019 12:16:51 Asthma 312259052 J45.909 acting up with allergies, but controlled with proair/zyr marito Hypertensive disorder 38 945859 I10 very well controlled though with probable amlodipine ADR, will d/c amlodipine and maximize lisinopril /hctz dose Environmental allergy 42 3620124 T78.49XA takes zyrtec Chronic at rial fibrillation 688275860 I48.2 not bothersome /quiet Edema of lower leg 62550 7004 R60.0 b/l ? amlodipine ADR, no signs or other sx of AHF will d/c amolodipin e increase the lisinopril dose on her lisin/hctz combo drug pt will check bp at home daily and f/u if too low or too high- othwerise will f/u in 2 months as planned [id number] Dudley Espino DO [facility] [address] [facility] [address],[place] [address] 06/14/2019 11:44:15 06/14/2019 13:36:10 Chronic atrial fibrillation 004903979 I48.2 stable on atenolol Hypertensive disorder 38 311340 I10 stable overall doing well with meds has her new bp machine and have her to record these will need to follow rhythm as she has a few pvc's noted on exam Impaired f asting glycemia 842688614 R73.01 warnings re develop of dm discussed need for better diet as snacking at night is her problem doesnt eat during day which is not good a1c is 6. Asthma 094160453 J45.90 9 wheezing is well controlled no recent episodes Osteopenia 294776418 M85 .80 Urinary tr act infectious disease 49541578 N39.0 now resolved will rechk when need [id number] Dudley Espino DO [facility] [address] [facility] [place] it[address] [facility] [address] 09/27/2019 10:37:09 09/27/2019 11:27:02 Chronic atrial fibrillation 392412849 I48.20 stable only occ palpitatio ns states disappears after a few min no cp no sob Asthma 203721777 J45.90 9 wheezing is well controlled no recent episodes Hypertensive disorder 38 977938 I10 stable overall doing well with meds has her new bp machine and have her to record these will need to follow rhythm as she has a few pvc's noted on exam Impaired f asting glycemia 878505554 R73.01 warnings re develop of dm discussed need for better diet as snacking at night is her problem doesnt eat during day which is not good a1c is 6.in may and we will recheck again this fall [id number] Dudley Espino DO [facility] [address] [facility] [place] [address] 11/29/2019 10:48:27 11/29/2019 11:25:13 Asthma 816574661 J45.909 wheezing is well controlled no recent episodes Blepharitis 72394533 H01 .9 L eyelid ongoing 2 days Osteoarthr itis of knee 014651637 M17.9 Particular ly bad flair Will try pred taper when she has a bad flair [id number] Dudley Espino DO [facility] [address] [facility],[place] [address] 01/29/2020 10:32:32 01/29/2020 11:04:36 Chronic atrial fibrillation 703082095 I48.20 stable only occ palpitatio ns states disappears after a few min no cp no sob Asthma 270352987 J45.90 9 wheezing is well controlled no recent episodes Hypertensive disorder 38 663715 I10 stable overall doing well with meds has her new bp machine and have her to record these will need to follow rhythm as she has a few pvc's noted on exam Impaired f asting glycemia 408739062 R73.01 warnings re develop of dm discussed need for better diet as snacking at night is her problem doesnt eat during day which is not good a1c is 6.in may and we will recheck again this fall Active or passive immunization 853787387 Z23 [id number] DONA UGARTE [facility] [address] [facility], [place] [address] 03/13/2020 11:08:36 03/13/2020 12:02:09 Acute otitis media 0190263 H66.92 will give patient script for amox because she has used this in the past for ear infections and it has worked well for her [id number] Dudley Espino DO [facility] [address] [facility] [place] it[address] D [facility] [address] 05/13/2020 10:46:34 05/13/2020 11:23:42 Asthma 944537380 J45.909 wheezing is well controlled no recent episodes Hypertensive disorder 38 538685 I10 stable overall doing well with meds has her new bp machine and have her to record these will need to follow rhythm as she has a few pvc's noted on exam Impaired f asting glycemia 381649744 R73.01 unknown status so we will wait and see what the a1c shows [id number] Dudley Espino DO [facility] [address] [facility] [place] [address] 08/12/2020 11:11:32 08/12/2020 12:37:17 Hypertensive disorder [id number] I10 stable overall doing well with meds has her new bp machine and have her to record these will need to follow rhythm as she has a few pvc's noted on exam Atrial fibrillation 4943 6004 I48.91 overall is stable and doing ok denies cp or sob but asthma is starting to act up again so will be using inhaler more which will increase the heart rate Chronic at rial fibrillation 882587911 I48.20 stable only occ palpitatio ns states disappears after a few min no cp no sob doing quite well and is anticoag on eliquis an d has good rate control Impaired f asting glycemia 393004483 R73.01 a1c =is 6.5 and is close to full blown DM told pt must have her eat better and drop some lbs as she is over 200 Osteoarthr itis of knee 659930120 M17.9 is still problemati c along with her psoriatic [id number] Dudley Espino [facility] [address] [facility] [address] [place] [address] 11/13/2020 11:22:12 11/13/2020 12:21:47 Chronic atrial fibrillation 418501382 I48.20 stable only occ palpitatio ns states disappears after a few min no cp no sob doing quite well and is anticoag on eliquis an d has good rate control Asthma 429512055 J45.90 9 wheezing is well controlled no recent episodes Hypertensive disorder 38 059334 I10 stable overall doing well with meds has her new bp machine and have her to record these will need to follow rhythm as she has a few pvc's noted on exam Impaired f asting glycemia 913360034 R73.01 a1c is pending 6.5 and is close to full blown DM told pt must have her eat better and drop some lbs as she is over 200 [id number] Dudley Espino [facility] [address] [facility] [address],[place] [address] 12/25/2020 10:57:37 12/25/2020 12:04:20 Chronic atrial fibrillation 338948397 I48.20 stable only occ palpitatio ns states disappears after a few min no cp no sob doing quite well and is anticoag on eliquis an d has good rate control Hypertensive disorder 38 792855 I10 stable overall doing well with meds doing well with home bps has her new bp machine and have her to record these will need to follow rhythm as she has a few pvc's noted on exam Impaired f asting glycemia 951667124 R73.01 a1c is pending 6.5 and is close to full blown DM but she has lost a great dealof wgt and so this should not be a issue [id number] Dudley Espino DO [facility] [address] [facility] [address],[place] [address] 05/30/2021 11:19:24 05/30/2021 12:05:50 Thrombocytopenic disorder 332458637 D69.6 [facility] with eliquis Asthma 187932731 J45.90 9 wheezing is well controlled no recent episodesno t having to use the rescue inhaler!!! Hypertensive disorder 38 515828 I10 stable overall doing well with meds doing well with home bps has her new bp machine and have her to record these will need to follow rhythm as she has a few pvc's noted on exam Chronic at rial fibrillation 468252883 I48.20 stable only occ palpitatio ns states disappears after a few min no cp no sob doing quite well and is anticoag on eliquis an d has good rate control Bilateral osteoarthritis of finger of hands [id number] 35262 M19.042 M19.041 suggested she try the voltaren gel Impaired f asting glycemia 220711820 R73.01 a1c is 6.2 and prior was 6.5 and is close to full blown DM but she has lost a great dealof wgt and so this should not be a issue [id number] Dudley Espino DO [facility] [address] [facility] [address],[place] [address] 10/10/2021 13:22:36 10/10/2021 16:14:10 Asthma 614224852 J45.909 wheezing is well controlled no recent episodesno t having to use the rescue inhaler!!! Chronic at rial fibrillation 423119124 I48.20 stable not sure if this was involved in her recent issue this is now gone but i wonder if this was responsibl e for a short period of timewill be seeing dr starr on wednesday so we will hold off on event recorder untils seenno cp no sob doing quite well and is anticoag on eliquis an d has good rate control Hypertensive disorder 38 657909 I10 stable overall doing well with meds doing well with home bps is using her new bp machineno obvious changes noted on exam Impaired f asting glycemia 501059828 R73.01 we need to have this checked again last spring she was a1c is 6.2 and prior was 6.5 and is close to full blown DM but she has lost a great dealof wgt and so this should not be a issue Osteoarthr itis of knee 135921394 M17.9 is still problemati c along with her psoriatic [id number] Dudley Espino DO [facility] [address] [facility] [address] [place] [address] 02/03/2022 13:27:02 02/03/2022 14:44:47 Impaired fasting glycemia 605658704 R73.01 we need to have this checked again last spring she was a1c is 6.2 and prior was 6.5 and is close to full blown DM but she has lost a great dealof wgt and so this should not be a issue Hypertensive disorder 38 862970 I10 stable overall doing well with meds doing well with home bps is using her new bp machineno obvious changes noted on exam Asthma 405474425 J45.90 9 wheezing is well controlled no recent episodesno t having to use the rescue inhaler!!! 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 Chronic at rial fibrillation 213555389 I48.20 stable not sure if this was involved in her recent issue this is now gone but i wonder if this was responsibl e for a short period of timewill be seeing dr starr on wednesday so we will hold off on event recorder untils seenno cp no sob doing quite well and is anticoag on eliquis an d has good rate control Hypertensive disorder 38 944301 I10 stable overall doing well with meds doing well with home bps is using her new bp machineno obvious changes noted on exam relates she knows when her bp is elevated she doesnt feel good and this is very noticeable for herbp is much better states is bc her stress levels are better Impaired f asting glycemia 123841017 R73.01 we need to have this checked again last spring she was a1c is 6.2 and prior was 6.5 and is close to full blown DM but she has lost a great deal of wgt and so this should not be a issue Active or passive immunization 913156133 Z23 patient advised she is due for 2nd shingles vacc & pneu 23 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 poss link with pascual [id number] DONA UGARTE [facility] [address] [facility],Danielle celeste [place] [address] 06/12/2022 13:56:37 06/12/2022 14:37:03 Acute urinary tract infection 170279562 N10 will start on abxif no improvemen t will have her [place]cup [place] [id number] DONA UGARTE [facility] [address],[place] [address] 10/09/2022 10:15:16 10/09/2022 12:51:28 Asthma 007766265 J45.31 stable nowresolve d Dyspnea on exertion 6084 5006 R06.09 stablereso lved [id number] Dudley Stephens Mauri [facility] [address] [facility],[place] [address] 11/04/2022 10:18:52 11/04/2022 11:15:15 Asthma 970342199 J45.31 wheezing is well controlled no recent episodesno t having to use the rescue inhaler!!! Hypertensive disorder 38 880929 I10 stable overall doing well with meds is using her new bp machineno obvious changes noted on exam relates she knows when her bp is elevated she doesnt feel good and this is very noticeable for herbp is much better states is her stress levels are better Chronic at rial fibrillation 449956269 I48.20 she is doing very well overallsti llactive and this is controlled no palpitat and no cp or sobhold off on event recorder untils seenno cp no sob doing quite well and is anticoag on eliquis an d has good rate control [id number] Dudley Stephens Mauri [facility] [address] [facility],[place] [address] 04/09/2023 10:23:05 04/09/2023 11:25:43 Asthma 705255457 J45.31 wheezing is well controlled no recent episodesno t having to use the rescue inhaler!!! Achilles tendinitis 1165 4001 M76.62 is stable and doing well Chronic at rial fibrillation 784916423 I48.21 she is doing very well overallsti llactive and this is controlled no palpitat and no cp or sobhold off on event recorder untils seenno cp no sob doing quite well and is anticoag on eliquis an d has good rate control Hypertensive disorder 38 527598 I10 stable overall doing well with meds is using her new bp machineno obvious changes noted on exam relates she knows when her bp is elevated she doesnt feel good and this is very noticeable for herbp is much better states is bc her stress levels are better Localized, 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 will cont to treat conserv pt doesnt want tx or w/u yet she will let us know if changes [id number] DONA UGARTE [facility] [address] [facility] [address] [place] [address] 04/06/2023 11:05:29 04/06/2023 14:57:25 Achilles tendinitis 97655056 M76.62 stable 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 Chronic at rial fibrillation 417892789 I48.21 stable Paronychia of finger 444 576921 L03.012 left middle finger has fu with EMERALD wednesday [id number] Dudley Espino DO [facility] [address] [facility] [address] [place] [address] 05/18/2023 13:19:49 05/18/2023 14:05:08 Hypertensive disorder 48953495 I10 stable overall doing well with meds is using her new bp machineno obvious changes noted on exam relates she knows when her bp is elevated she doesnt feel good and this is very noticeable for herbp is much better states is bc her stress levels are better Asthma 784739140 J45.31 wheezing is well controlled no recent episodesno t having to use the rescue inhaler!!! [id number] Dudley Espino DO [facility] [address] [facility] [address] [place] [address] 11/03/2023 10:19:06 11/03/2023 11:07:30 Asthma 904889156 J45.31 wheezing is well controlled no recent episodes an d has a wood stove which is not great for her breathing but she does anywayshe is having to use the rescue inhaler twice a day Hypertensive disorder 38 559153 I10 stable overall doing well with meds is using her new bp machineno obvious changes noted on exam relates she knows when her bp is elevated she doesnt feel good and this is very noticeable for herbp is much better states is bc her stress levels are better Chronic at rial fibrillation 980860233 I48.21 she is doing very well overall sees cardiologi st in 2 weeksstill active and this is controlled no palpitat and no cp or sobhold off on event recorder untils seenno cp no sob doing quite well and is anticoag on eliquis an d has good rate control 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 29438665 M19.071 she has recovered from most recent bout of arthritis Foot pain 60267168 M79.6 71 better now than above [id number] NARESH JAIME, DONA [facility] [address] [facility] [address],[place] [address] 01/19/2024 08:08:50 01/21/2024 12:04:30 Gout 59707929 M10.071 will set up with higher dose of the steroids, has f/u with rheum fu with patient wednesday needs sugar monitoredh ave to weight until she can walk to get the lab work done Impaired f asting glycemia 867875468 R73.01 fu after rheum [id number] Dudley Espino DO [facility] [address] [facility],[place] [address] 02/09/2024 15:38:41 02/09/2024 16:56:36 Chronic atrial fibrillation 570860220 I48.21 she is doing very well overall sees cardiologi st in 2 weeksstill active and this is controlled no palpitat and no cp or sobhold off on event recorder untils seen no cp no sob doing quite well and is anticoag on eliquis an d has good rate control Hypertensive disorder 38 859149 I10 stable overall doing well with med [...] is bc her stress levels are better Impaired f asting glycemia 554562543 R73.01 we need to have this checked again last spring she was a1c is 6.2 and prior was 6.5 and is close to full blown DM but she has lost a great deal of wgt and so this should not be a issue Essential hypertension 36771321 I10 [id number] Dudley Espino, [facility] [address] [facility],[place] [address] 04/07/2024 14:15:12 04/07/2024 16:02:52 Asthma 459437499 J45.31 wheezing is well controlled no recent episodes an d has a wood stove which is not great for her breathing but she does anywayshe is having to use the rescue inhaler twice a day Hypertensive disorder 38 981542 I10 stable overall doing well with med [...] is bc her stress levels are better Depression screening 171 768024 Z13.31 Negative Screening Gout 23914317 M10.071 currently stable at the moment so allergy to allopurino land is now started on febuxostat per rheum she will start this weekenduri c acid is still high Chronic at rial fibrillation 459249970 I48.21 she is doing very well overall sees cardiologi st in 2 weeksstill active and this is controlled no palpitat and no cp or sobhold off on event recorder untils seen no cp no sob doing quite well and is anticoag on eliquis an d has good rate control [id number] Dduley Espino [facility] [address] [facility] [address] [place],Lolis Quick [facility] [place] [address] 08/21/2024 14:23:51 08/21/2024 15:11:40 Asthma 324061062 J45.31 wheezing is well controlled no recent episodes an d has a wood stove which is not great for her breathing but she does anywayhad RSV this summershe is having to use the rescue inhaler twice a day Chronic at rial fibrillation 622377516 I48.21 she is doing very well overall sees cardiologi st in 2 weeksstill active and this is controlled no palpitat and no cp or sobhold off on event recorder untils seen no cp no sob doing quite well and is anticoag on eliquis an d has good rate control Pain of le ft ankle joint 5130245879 0399490 M25.572 residual gout vs arthritis [id number] Dudley Espino DO [facility] [address] [facility],Danielle itmanuela Quick [facility] [place] [address] 12/18/2024 09:46:34 12/18/2024 10:15:46 Asthma 190454101 J45.31 again she is doing well the wheezing is well controlled no recent episodes an d has a wood stove which is not great for her breathing but she does anywayhad RSV this summershe is having to use the rescue inhaler twice a day Hypertensive disorder 38 648551 I10 stable overall doing well with med [...] levels are better Chronic at rial fibrillation 613106931 I48.21 she is doing very well overall sees cardiologi st in 2 weeksstill active and this is controlled no palpitat and no cp or sobhold off on event recorder untils seen no cp no sob doing quite well and is anticoag on eliquis an d has good rate control Thrombocyt openic disorder 083075558 D69.3 will be seeing the hematologi st for this? 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 will monitorres tart lisinopril Essential hypertension 78139970 I10 restart lisinopril [id number] Dudley Espino DO [facility] [address] [facility] [address],[place] [address] 01/16/2025 13:25:09 01/16/2025 14:28:03 Paronychia of finger 317343629 L03.019 noted getting worse and now swollen with early blister Essential hypertension 31585057 I10 will go back to the lisinopril hct stop the furosemide Edema of l ower extremity 914052289 R60.0 seems stable while on furosemid but we will switch back to hct w lisinopril Idiopathic urticaria 422 78761 L50.1 unknown etiology Health Concerns Section Related Observation LastModified by Organization Detai ls LastModified Time None Recorded Concern Status LastModified by Organization Details LastModified Time None Recorded Advance Directives Directive None Recorded Payers Encounter Date Sequence Insurance Name Policy Number Policy Padron Covered Member ID Padron Member ID Guarantor Name 04/07/2024 1 [facility] [id number] [place] Umanzor 08/21/2024 1 [facility] Virginia Umanzor [id number] Virginia Umanzor 12/18/2024 1 [facility] Virginia Umanzor [id number] Virginia Umanzor 01/09/2025 1 [facility] Virginia Umanzor [id number] Virginia Umanzor 01/16/2025 1 [facility] Virginia Umanzor [id number] Virginia Umanzor Notes Date Note Type Note Provider Name and Address Organization Details Recorded Time 04/07/20 24 text/htm l Care Management - HypertensionReported bypatient.Self Care:not under emotional stress Severity:symptoms are improving; does not interfere with daily activities Associated Symptoms:no dizziness; no lightheadedness; no chest pain; no shortness of breath; no palpitations; no edema; no calf muscle cramps; no blurred vision; no confusion; no headaches; no fatigue relates had a bad allopurinol skin reaction now on febuxostatallopurinol now off Dudley Espino, [address] [place], [address], [facility] 04/07/2024 14:48:38 08/21/20 24 text/htm l here for rechk and has been having a great deal of pain to her left anklewas told was gout by rheum but she doesnt belive it and wont go anymore she had been given two medshad a uric acid of 12 in hospital and was given predrheum tried her on allopurinol developed rashthe treid her on febuxostat which she also had rxn Dudley Stephens DO Mauri [address] [place], [address], [facility] 08/21/2024 15:11:07 12/18/19 25 text/htm l Care Management - Atrial FibrillationReported bypatient.Medications:com pliant with medication Prior Imaging:echocardiogram; recent ECG Associated [...] and is doing okno major issues seeing service counter cashier tomorrowno aurea trammell not gotten lab Dudley Espino, [address] [place], [address], [facility] 12/18/2024 10:15:28 01/09/20 25 text/htm l c/o hives The patient is participating in this appointment via telemedicine communication with a phone call/video calling service (Doxy)The patient consents to use of these platforms in place of an in-person appointment due to either sick symptoms the patient is presenting with or current office closure due to COVID exposure in order to keep our office staff and patients safe the patient reports that she doesn't think it's the lisinopril that caused the hivesthe patient reports that she isn't sure what another trigger could have beenno new foods, lotions, shampoos, medications only possible issues are the dog getting groomed, new shampoo? or viral rash not hives or reaction to weather the patient reports that she will retry the lisinopril again and see if it happens againwill be finishing out the prednisone and will monitor to see if it does cause the rash again DONA UGARTE [address] [place], [address], [facility] 01/09/2025 12:25:31 01/16/20 25 text/htm l Care Management - HypertensionReported bypatient.Self [...] of middle finger on left hand Dudley Espino DO [address] [place], [address], [facility] 01/16/2025 13:59:02 OBGyn Episode No OBEpisode recorded.
--- OUTSIDE RECORDS SUMMARY | 2025-01-16 17:35 | XMS_ITS | Continuity of Care Document ---
Author Organization [facility], [facility] Address [address] [place] [address] [place] [address] Assessment Encounter Date Assessment Date Assessment LastModified by Organization Details LastModified Time 01/09/2025 01/09/2025 Patient agreed and verbally consents to this audio and video Telehealth appt via a secure platform [email or web address] Not available 01/09/2025 12:23:23 Plan of Treatment Reminders Order Date Submit Date Provider Last Modified By Organization Details Last Modified Time Details Appointments FOLLOW UP 15 2024 01:30P M DR ESPINO Not available Not available Not available FOLLOW UP 15 2024 09:45A M DR ESPINO Not available Not available Not available Lab None recorded . Referral None recorded . Procedures None recorded . Surgeries None recorded . Imaging None recorded . Medication Orders None recorded . Patient TargetsNo targets recorded. Patient InstructionsNo instructions recorded. Reason for Referral None Reported. Problems Name Problem SNOMED Code Status Onset Date Resolution Date Notes Provider Name and Address Organization Details Recorded Time Chronic atrial fibrilla tion 688538765 Active 2018 [facility] Available [facility] 2 13:05:37 Thromboc ytopenic disorder 451826441 Active 2018 [facility] Available [facility] 2 13:05:37 Osteoart hritis of wrist 477934316 Active 2021 DONA UGARTE [address] [place], [address], [facility] 2 14:13:11 Osteoart hritis of wrist 550358286 Active 2021 DONA UGARTE [address] [place], [address], [facility] 2 14:13:44 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 56089440 Active 2021 DONA UGARTE [address] [place], [address], [facility] 2 14:19:46 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 15126950 Active 2021 DONA UGARTE [address] [place], [address], [facility] 2 14:20:09 Acute urinary tract infectio n 708620075 Active 2021 DONA UGARTE [address] [place], [address], [facility] 2 14:07:21 Dyspnea on exertion 32565554 Active 2021 DONA UGARTE [address] [place] [address], [address], [facility] 2 10:21:36 Achilles tendinit is 86489699 Active 2022 DONA UGARTE [address] [place] [address], [address], [facility] 3 11:45:35 Paronych ia of finger 028741164 Active 2022 DONA UGARTE [address] [place] [address], [address], [facility] 3 11:45:57 Localize d, primary osteoart hritis of toe 620129913 Active 2022 Dudley Espino DO [address] [place], [address], [facility] 3 11:02:19 Foot pain 08519642 Active 2022 DONA UGARTE [address] [place], [address], [facility] 3 11:59:09 Acute bronchit is 40116051 Active 2022 DONA UGARTE [address] [place], [address], [facility] 3 10:12:23 Gout 55557083 Active 2023 DONA UGARTE [address] [place], [address], [facility] 4 15:15:41 Pain of left ankle joint 05475122012 608850 Active 2023 Dudley Espino, DO [address] [place], [address], [facility] 4 15:07:38 Idiopath ic urticari a 29499984 Active 2024 DONA UGARTE [address] [place], [address], [facility] 5 12:23:15 [facility]ia l hyperten ana luisa 71222026 Active 2024 DONA UGARTE [address] [place], [address], [facility] 5 12:24:50 Edema of lower extremit y 025175752 Active 2024 DONA UGARTE [address] [place], [address], [facility] 5 15:52:41 Hyperten sive disorder 56060727 Active 2017 Not Available [facility] 2 13:05:37 Impaired fasting glycemia 258327198 Active 2017 Not Available [facility] 2 13:05:37 Transien t cerebral ischemia 592787523 Active 2017 2005 Not Available [facility] 2 13:05:37 History of lacunar cerebrov ascular accident 81935579788 101 Active 2017 Not Available [facility] 2 13:05:37 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 Not Available [facility] 2 13:05:37 Achilles tendinit is 13480185 Active 2017 Not Available [facility] 2 13:05:37 Plantar fasciiti s 186104269 Active 2017 Not Available [facility] 2 13:05:37 Asthma 912351995 Active 2017 Not Available [facility] 2 13:05:37 Environm ental allergy 753944972 Active 2017 Not Available [facility] 2 13:05:37 Low back pain 519018476 Active 2017 Not Available [facility] 2 13:05:37 Osteoart hritis of knee 374890127 Active 2017 bilateral Not Available [facility] 2 13:05:37 Recurren t urinary tract infectio n 074006061 Active 2017 Not Available [facility] 2 13:05:37 Synovial cyst 944912697 Active 2017 L3-4 Not Available [facility] 2 13:05:37 Paronych ia 96918453 Active 2017 Not Available [facility] 2 13:05:37 Notes:Some problems listed i n Document: #[id number] could not be added to this patient's chart. Please review this document and add these problems to the patient's chart manually as needed. Problem Notes None recorded. Procedures Surgical History Date Name Laterality Status Provider Name and Address Organization Details Recorded Time 022 Corticosteroid Injection completed Dudley Espino, DO [address] [facility], [place], [address], [facility] 02/03/2022 14:02:19 Imaging Results None recorded. Procedure Notes None recorded. Medical Equipment None Reported. Allergies Allergen ID Allergen Name Allergen Category Reaction Reaction Severity Criticality Documentation Date Start Date Code Code System Note Provider Name and Address Organization Details Recorded Time 1153 Product containin g tetracycl ine and antibioti c (product) medicatio n Not available Not available Not available 03/22/2018 36030 1004 SNOMED [facility] 8 15:53:21 1154 Substance with sulfonami de structure and antibacte rial mechanism of action (substanc e) medicatio n Not available Not available Not available 03/22/2018 26929 8003 [facility] 15:[facility]27 1155 Non-stero idal anti-infl ammatory agent (product) medicatio n Not available Not available Not available 03/22/2018 70623 005 [facility]ED [facility] 15:53[facility]34 2501 Macrobid medicatio n nausea Not available Not available 09/28/2018 97768 1 [facility] 8 10:12:12 8033 allopurin ol medicatio n hives Not available Not available 04/07/2024 519 RxNorm David [facility] 4 14:33:44 8373 febuxosta t medicatio n flushing moderate low 08/21/2024 86901 RxNorm Dudley Espino, DO [address] [place], [address] 4 15:05:23 Medications Name [...] Not Available azithromyc in 250 mg tablet 11/18 /2022 completed Not Available [...] Not Available No t Available Fluzone High-Dose 2546-4246 (PF) 180 mcg/0.5 mL intramuscu lar syringe 11/29 completed Not Available Not Available Not Available Fluzone High-Dose 2018- (PF) 180 mcg/0.5 mL intramuscu lar syringe 01/28 completed Not Available Not Available Not Available Fluzone High-Dose Quad 2019- (PF) 240 mcg/0.7 mL IM syringe 11/13 completed Not Available Not Available Not Available Vitals None Recorded Social History Question Answer Notes LastModified by [...] 50 mcg/0.25mL dose 1 completed Key de [facility] 05/28/2021 08:41:27 COVID-19, mRNA, LNP-S, PF, 100 mcg/0.5mL dose or 50 mcg/0.25mL dose 1 completed Key de [facility] 05/28/2021 08:41:32 COVID-19, mRNA, LNP-S, PF, 30 mcg/0.3 mL dose 1 completed DONA UGARTE [address] [place] [address], [address], [facility] 10/05/2021 18:44:20 Influenza, split virus, quadrivalent, preservative 1 completed Jessica de [facility] 10/10/2021 13:33:43 COVID-19, mRNA, LNP-S, PF, 30 mcg/0.3 mL dose 2 completed Jessica de [facility] 03/11/2022 13:34:30 zoster recombinant 2 completed Tammi de [facility] 11/03/2022 10:11:25 zoster recombinant 2 completed Tammi de [facility] 11/03/2022 10:11:32 influenza, unspecified formulation 2 completed Tammi Kev santino, [facility] 11/03/2022 10:12:09 Influenza, split virus, quadrivalent, preservative 9 completed Jessica Eliecer santino, [facility] 01/29/2020 10:48:42 Influenza, split virus, quadrivalent, preservative 0 completed Key Nataliia santino, [facility] 09/03/2020 08:17:54 Pneumococcal conjugate PCV 13 0 completed Key Nataliia santino, [facility] 09/03/2020 08:18:12 Past Encounters Encounter ID Performer Location Encounter Start Date Encounter Closed Date Diagnosis/Indication Diagnosis SNOMED-CT Code Diagnosis ICD10 Code Diagnosis Note [id number] Dudley Espino [facility] [address] [facility] [facility] [facility],[place] [address] 12/18/2024 09:46:34 12/18/2024 10:15:46 Asthma 193646860 J45.31 again she is doing well the wheezing is well controlled no recent episodes an d has a wood stove which is not great for her breathing but she does anywayhad RSV this summershe is having to use the rescue inhaler twice a day Hypertensive disorder 38 018632 I10 stable overall doing well with med [...] levels are better Chronic at rial fibrillation 866890149 I48.21 she is doing very well overall sees cardiologi st in 2 weeksstill active and this is controlled no palpitat and no cp or sobhold off on event recorder untils seen no cp no sob doing quite well and is anticoag on eliquis an d has good rate control Thrombocyt openic disorder 219298725 D69.3 will be seeing the hematologi st for this? 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 Impaired f asting glycemia 464248025 R73.01 we need to have this checked again last spring she was a1c is 6.2 and prior was 6.5 and is close to full blown DM but she has lost a great deal of wgt and so this should not be a issue [id number] DONA UGARTE [facility] [address] [facility],[place] [address] 01/09/2025 09:23:55 01/09/2025 12:43:37 Idiopathic urticaria 52468236 L50.1 will monitorres tart lisinopril Essential hypertension 26823611 I10 restart lisinopril Health Concerns Section Related Observation LastModified by Organization Detai ls LastModified Time None Recorded Concern Status LastModified by Organization Details LastModified Time None Recorded Payers Encounter Date Sequence Insurance Name Policy Number Policy Padron Covered Member ID Padron Member ID Guarantor Name 01/09/2025 1 [facility] Virginia Umanzor [id number] Virginia Umanzor Notes Date Note Type Note Provider Name a nd Address Organization Details Recorded Time 01/09/2025 text/html c/o hives The patient is participating in [...] cause the rash again DONA UGARTE [address] [facility], [place], [address], [facility] 01/09/2025 12:25:31 OBGyn Episode No OBEpisode recorded.
[2025-01-16 18:23] LABS: C Reactive Protein 0.64 mg/dL (< or = 0.50)
[2025-01-16 18:50] LABS: Erythrocyte Sedimentation Rate 10 MM/HR (0-20)
[2025-01-17 20:28] LABS: Immunoglobulin E 873 kU/L (<OR=114)
[2025-01-22 11:59] LABS: Anti Nuclear Antibody Pattern Nuclear, Speckled; Anti Nuclear Antibody Screen POSITIVE (NEGATIVE); Anti Nuclear Antibody Titer 1:40 titer
== END 2025-01-16 14:02 | disposition home or self-care (01) ==
LOC: HO.MANLDS 14:01
PROVIDERS: Visit Provider Internal Medicine
DX: L50.1 Idiopathic urticaria (principal)
CPT/HCPCS: 36415; 82785; 85652; 86038; 86039; 86140